=== PATIENT | female | born 2000 | race African-American/Black ===

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

== ENCOUNTER 2023-01-11 05:56 | Emergency (ER) | payer MEDICAID ==
[~2023-01-11] VITALS: Ht 160 cm; Wt 84.0 kg
[2023-01-11 06:23] VITALS: BP 124/76
[2023-01-11] MEDS ORDERED: TRIA0.02 TOP (07:14)
[2023-01-11] MEDS ORDERED: IBUP-1456 PO (07:14)
[2023-01-11] MEDS ORDERED: CEPH500C PO (07:14)
[2023-01-11] MEDS ORDERED: KETOROLAC TROMETH 60MG/2ML VIAL IM ONE (07:15)
== END 2023-01-11 07:27 | disposition home or self-care (01) ==
LOC: ER 05:56
DX: T63.481A Toxic effect of venom of other arthropod, accidental (unintentional), initial encounter (principal); Z79.1 Long term (current) use of non-steroidal anti-inflammatories (NSAID); Z79.899 Other long term (current) drug therapy; Y92.89 Other specified places as the place of occurrence of the external cause
CPT/HCPCS: 96372; 99283; J1885